=== PATIENT | male | born 1995 | race Caucasian/White ===

== ENCOUNTER 2023-04-30 19:13 | Emergency (ER) | payer OTHER ==
[~2023-04-30] VITALS: Ht 170.2 cm; Wt 127.0 kg
[2023-04-30 19:26] VITALS: BP 154/97
[2023-04-30] MEDS ORDERED: Prednisone20 MG PO (23:03)
[2023-04-30] MEDS ORDERED: CYCL10 PO (23:03)
== END 2023-04-30 23:18 | disposition home or self-care (01) ==
LOC: ER 19:13
DX: M54.50 Low back pain, unspecified (principal)
CPT/HCPCS: 96372; 99283; A9270; J1170; J1885

== ENCOUNTER 2024-10-15 12:36 | Emergency (ER) | payer OTHER ==
[~2024-10-15] VITALS: Ht 170.2 cm; Wt 133.8 kg
[~2024-10-15 12:36] MED LIST: Bactrim Ds Tab1 EACH PO; CYCL10 PO; Prednisone20 MG PO
[2024-10-15 13:33] VITALS: BP 163/100
[2024-10-15 14:11] LABS: BASOPHILS ABSOLUTE AUTO 0.04 K/mm3 (0.00-0.23); BASOPHILS PERCENT AUTO 1 % (0-2); EOSINOPHILS ABSOLUTE AUTO 0.15 K/mm3 (0.00-0.68); EOSINOPHILS PERCENT AUTO 2 % (0-6); Hematocrit 46.6 % (37.0-53.0); Hemoglobin 16.2 g/dL (13.5-17.5); IMMATURE GRAN ABSOLUTE AUTO 0.02 K/mm3 (0.00-0.10); IMMATURE GRAN PERCENT AUTO 0 % (0-1); LYMPHOCYTES ABSOLUTE AUTO 2.47 K/mm3 (0.84-5.20); LYMPHOCYTES PERCENT AUTO 34 % (21-46); MONOCYTES PERCENT AUTO 8 % (4-13); Mean Corpuscular HGB 31.5 pg (26.0-34.0); Mean Corpuscular HGB Conc 34.8 g/dL (31.5-36.5); Mean Corpuscular Volume 91 fL (80-100); Mean Platelet Volume 9.6 fL (9.1-12.4); NEUTROPHILS ABSOLUTE AUTO 3.91 K/mm3 (1.96-9.15); NEUTROPHILS PERCENT AUTO 54 % (41-73); Platelet Count 263 K/mm3 (150-400); RDW Coefficient Variation 12.7 % (11.7-14.2); RDW Standard Deviation 42.3 fL (35.1-46.3); Red Blood Cell Count 5.15 M/mm3 (4.30-5.90); White Blood Cell Count 7.19 K/mm3 (4.00-11.30)
[2024-10-15 14:36] LABS: Bilirubin, Total 0.3 mg/dL (0.1-1.0); Bun/Creatinine Ratio 14.1 (12.0-20.0); Calcium, Blood 9.4 mg/dL (8.5-10.1); Creatinine, Blood 0.71 mg/dL (0.60-1.20); Globulin, Blood 3.9 g/dL (2.2-4.0); Total Protein, Blood 7.9 g/dL (6.4-8.2)
[2024-10-15 14:47] LABS: Influenza A, PCR NEGATIVE (NEGATIVE); Influenza B, PCR NEGATIVE (NEGATIVE); Resp Syncytial Virus, PCR NEGATIVE (NEGATIVE); SARS-Cov-2 (COVID-19) PCR, MMC NEGATIVE (NEGATIVE)
[2024-10-15] MEDS ORDERED: MECL12.5 PO (16:37)
[2024-10-16] MEDS ORDERED: ONDA4ODT MM (16:29)
== END 2024-10-15 16:40 | disposition home or self-care (01) ==
LOC: ER 12:36
PROVIDERS: Emergency Medicine; Student in an Organized Health Care Education/Training Program
DX: R42 Dizziness and giddiness (principal); Z79.899 Other long term (current) drug therapy
CPT/HCPCS: 0241U; 71046; 80053; 84484; 85025; 93005; 93010; 99284-25

== ENCOUNTER 2024-10-16 13:25 | Emergency (ER) | payer OTHER ==
[~2024-10-16] VITALS: Ht 170.2 cm; Wt 133.8 kg
[~2024-10-16 13:25] MED LIST changes: +MECL12.5 PO
[2024-10-16 13:39] VITALS: BP 128/87
[2024-10-16] MEDS ORDERED: NS 1,000 ML IV SCH ×2 (13:45→14:50)
[2024-10-16] MEDS ORDERED: Meclizine HCl 25 MG Tab PO ONE (15:20)
[2024-10-16] MEDS ORDERED: ONDA4ODT MM (16:29)
== END 2024-10-16 16:44 | disposition home or self-care (01) ==
LOC: ER 13:25
DX: H81.399 Other peripheral vertigo, unspecified ear (principal); Z79.899 Other long term (current) drug therapy
CPT/HCPCS: 99283; A9270; J7030